=== PATIENT | female | born 1965 | race Caucasian/White ===

== ENCOUNTER 2018-09-08 09:30 | Observation (INO) | payer OTHER ==
--- NOTE | 2018-09-15 22:42 | GHP ---
DATE OF ADMISSION: 09/16/2018 REASON FOR ADMISSION: Patellofemoral arthritis right knee. PLANNED PROCEDURE: Right patellofemoral arthroplasty with Phan robot assist. HISTORY OF PRESENT ILLNESS: The patient is a 53-year-old female with bilateral worsening anterior kn ee pain that has failed conservative management, including braces, activity modification, injections, oral anti-inflammatory medicines. Decision made to proceed with patellofemoral arthroplasty oliver meza on the right side. PRIOR MEDICAL HISTORY: None. SURGICAL HISTORY: None. MEDICATIONS: None. ALLERGIES: No known drug allergies. SOCIAL HISTORY: Does not smoke. Occasional alcohol. She works for [employer] and [employer]. REVIEW OF SYSTEMS: No shortness of breath. No chest pain. Otherwise, review of systems is unremark able. PHYSICAL EXAM: GENERAL: Healthy 53-year-old female. She is 5 feet 3 inches tall, weighs 145 pounds . VITAL SIGNS: Blood pressure is 123/74, heart rate 68, respiratory rate 16 on room air. She is al ert and oriented x3. HEENT: Normocephalic, atraumatic. Extraocular muscles intact. NECK: Supple. There is no lymphadenopathy. No JVD. CHEST: Clear to auscultation. CARDIOVASCULAR: Regular rat e and rhythm. ABDOMEN: Soft. No tenderness. No hepatosplenomegaly. EXTREMITIES: Focusing on the right knee: Lateral tilt to the patella. There is no effusion. She has full extension, flexes to 130 degrees. Knee is stable to varus, valgus stress testing. 1+ Laith with a firm endpoint. Nega tive posterior drawer. Calf is soft. Positive patellar grind test. 2+ dorsalis pedis and posterior tibial pulses. IMAGING: X-rays, MRIs, and CT scans were all reviewed. Bone quality looks good. She has severe pat ellofemoral arthritis. The cartilage of the medial lateral compartments is well maintained. There a re no meniscal tears. Ligaments are intact. ASSESSMENT: Severe patellofemoral arthritis, right knee. PLAN: We will proceed with a Phan assisted patellofemoral arthroplasty on the right knee. The risks and benefits including postoperative stiffness, infection, blood clots, were all discussed. She und erstands these risks and wished to proceed. /[id number]/MODL
[2018-09-16] MEDS ORDERED: ceFAZolin 2 GM/DEXTROSE 100 ML IV ONE (08:10)
[2018-09-16] MEDS ORDERED: LR 1,000 ML IV ONE (08:11)
--- NOTE | 2018-09-16 09:06 | PDHPUP ---
History & Physical Update H&P update statement: This history and physical update is based on an assessment of the patient which was completed after admission or registration (within 24 hours), but prior to the surgery/procedure. H&P update: H&P reviewed & patient examined, no change in patient's condition since H&P completed
[2018-09-16] MEDS ORDERED: ONDANSETRON 4 MG/2 ML VIAL IVP PRN ×2 (09:11→11:12)
[2018-09-16] MEDS ORDERED: ACETAMINOPHEN 500 MG TAB PO PRN (09:11)
[2018-09-16] MEDS ORDERED: DEXAMETHASONE 4 MG/ML VIAL IVP PRN (09:11)
[2018-09-16] MEDS ORDERED: HYDROmorphONE/DILAUDID 2 MG/ML INJ IVP PRN (09:11)
[2018-09-16] MEDS ORDERED: NALOXONE HCL 0.4 MG/ML INJ IVP PRN (09:11)
[2018-09-16] MEDS ORDERED: oxyCODONE IR 5 MG TAB PO PRN (09:11)
[2018-09-16] MEDS ORDERED: MIDAZOLAM 2 MG/2 ML VIAL IVP ONE (09:11)
[2018-09-16] MEDS ORDERED: LR 500 ML IV PRN (09:11)
[2018-09-16] MEDS ORDERED: fentaNYL 100 MCG/2 ML INJ IVP PRN (09:11)
--- NOTE | 2018-09-16 09:12 | PDANEPAE ---
ANE History of Present Illness r kNEE ANE Past Medical History - Cardiovascular History Hx Hypertension: No Hx Arrhythmias: No Hx Chest Pain: No Hx Coronary Artery / Peripheral Vascular Disease: No Hx CHF / Valvular Disease: No Hx Palpitations: No - Pulmonary History Hx COPD: No Hx Asthma/Reactive Airway Disease: No Hx Recent Upper Respiratory Infection: No Hx Oxygen in Use at Home: No Hx Sleep Apnea: No Sleep Apnea Screening Result - Last Documented: Negative - Neurologic History Hx Cerebrovascular Accident: No Hx Seizures: No Hx Dementia: No - Endocrine History Hx Diabetes: No - Renal History Hx Renal Disorders: No - Liver History Hx Hepatic Disorders: No - Neurological & Psychiatric Hx Hx Neurological and Psychiatric Disorders: Yes Neurological / Psychiatric History Comment: anxiety - Cancer History Hx Cancer: No - Congenital Disorder History Hx Congenital Disorders: No - GI History Hx Gastrointestinal Disorders: Yes Gastrointestinal History Comment: irritable bowel - Other Health History Other Health History: wears reading glasses - Chronic Pain History Chronic Pain: Yes (knee, back) - Surgical History Prior Surgeries: cervical fusion. breast implants. tonsillectomy. hand surgery ANE Review of Systems Review of Systems: - Exercise capacity METS (RN): 5 METS ANE Patient History - Allergies Allergies/Adverse Reactions: No Known Allergies Allergy (Verified 08/05/18 11:17) - Home Medications Home Medications: Herbals/Supplements -Info Only 1 each PO DAILY 08/05/18 [Last Taken Unknown] Ibuprofen [Motrin (*)] 200 mg PO DAILY PRN 08/05/18 [Last Taken Unknown] - NPO status NPO Since - Liquids (Date): 09/15/18 NPO Since - Solids (Date): 09/15/18 - Smoking Hx Smoking Status: Never smoked - Family Anes Hx Family Hx Anesthesia Complications: none ANE Labs/Vital Signs - Vital Signs Blood Pressure: 139/79 Heart Rate: 64 Respiratory Rate: 16 O2 Sat (%): 96 Height: 160.02 cm Weight: 65.317 kg ANE Physical Exam - Airway Neck exam: FROM Mallampati Score: Class 2 Mouth exam: normal dental/mouth exam - Pulmonary Pulmonary: clear to auscultation - Cardiovascular Cardiovascular: regular rate and rhythym - ASA Status ASA Status: I ANE Anesthesia Plan Anesthesia Plan: spinal Regional Anesthesia: adductor canal FNB
[2018-09-16] MEDS ORDERED: ceFAZolin 1 GM/5 ML SYR ONE (09:13)
[2018-09-16] MEDS ORDERED: PROPOFOL/EMULSION 500 MG/50 ML BOTTLE IV ONE ×2 (09:14)
[2018-09-16] MEDS ORDERED: BUPIVACAINE/DEXTROSE 7.5MG/ML 2 ML SPINAL AMP SP ONE (09:18)
[2018-09-16] MEDS ORDERED: fentaNYL 100 MCG/2 ML INJ ONE (10:00)
[2018-09-16] MEDS ORDERED: ROPIVACAINE HCL 150 MG/30 ML INJ ONE (10:01)
[2018-09-16] MEDS ORDERED: BUPIVACAINE/EPI 0.5% 30 ML SDV ONE (10:05)
[2018-09-16] MEDS ORDERED: THROMBIN (BOVINE) 5,000 UNIT VIAL TP ONE (10:24)
[2018-09-16] MEDS ORDERED: CALCIUM CHLORIDE 1 GM/10 ML INJ ONE (10:24)
[2018-09-16] MEDS ORDERED: ONDANSETRON DISINTEGRATING 4 MG TAB PO PRN (11:12)
--- NOTE | 2018-09-16 11:16 | POSTOPPROG ---
Post Op Note Date of Operation: 09/16/18 Surgeon: Chava Ashley Crystal Calibrator: Saturnino Bardales Anesthesiologist: Norman Anesthesia: GET(General Endotracheal) Pre-op Diagnosis: Right knee patellofemoral osteoarthritis Post-op Diagnosis: Right knee patellofemoral osteoarthritis Procedure: Right knee patellofemoral arthroplasty Inf/Abcess present in the surg proc area at time of surgery?: No Depth: Deep Incisional (Fascial) EBL: Minimal
[2018-09-16] MEDS ORDERED: MAGNESIUM HYDROXIDE 30 ML UDCUP PO PRN (11:26)
[2018-09-16] MEDS ORDERED: CYCLOBENZAPRINE 10 MG TAB PO PRN (11:26)
[2018-09-16] MEDS ORDERED: POLYETHYLENE GLYCOL 3350 17 GM PKT PO PRN (11:26)
[2018-09-16] MEDS ORDERED: diphenhydrAMINE 25 MG CAP PO PRN (11:26)
[2018-09-16] MEDS ORDERED: DIPHENOXYLATE/ATROPINE LOMOTIL 1 TAB PO PRN (11:26)
[2018-09-16] MEDS ORDERED: PROMETHAZINE HCL 25 MG/ML INJ IVP PRN (11:26)
[2018-09-16] MEDS ORDERED: LACTULOSE 20 GM/30 ML UDCUP PO PRN (11:26)
[2018-09-16] MEDS ORDERED: BISACODYL 10 MG SUPP PR PRN (11:26)
--- NOTE | 2018-09-16 11:26 | POSTANESTH ---
Post Anesthetic Evaluation Cardiovascular Status: Normal, Stable Respiratory Status: Normal, Stable Level of Consciousness/Mental Status: Mildly Sleepy, Arousable Pain Control: Adequate, Prn Tx Ordered Nausea/Vomiting Control: Adequate, Prn Tx Ordered Complications Possibly Related to Anesthesia: None Noted
[2018-09-16] MEDS ORDERED: LR 1,000 ML IV SCH (11:30)
--- NOTE | 2018-09-16 12:30 | GOP ---
DATE OF OPERATION: 09/16/2018 SURGEON: Chava Ashley MD FRESH FOOD MANAGER: Saturnino Luciano, FURNACE CHECKER, [facility]. PREOPERATIVE DIAGNOSIS: Patellofemoral arthritis, right knee. POSTOPERATIVE DIAGNOSIS: Patellofemoral arthritis, right knee. PROCEDURE PERFORMED: Right patellofemoral arthroplasty with Phan assist. FINDINGS: DESCRIPTION OF PROCEDURE: After appropriate informed consent was obtained, the patient was taken to the operating room and placed supine on the operating table. Time-out was performed. Patient was id entified and correct site was identified. She received 2 g of Ancef preoperatively. Following a spi nal anesthetic, the patient was positioned on the OR table. Right lower extremity was prepped and dr aped in the usual sterile fashion. Right leg was placed in a Means leg freeman. We made a standard midline incision with a medial parapatellar arthrotomy. Approximately 4 cm above that, we placed 2 pins to attach our array for the Phan. We also placed our secondary pin on the med ial femoral condyle. The patella was everted. She had full-thickness cartilage loss throughout the patellofemoral compartment. The meniscus and the articular cartilage in medial, lateral joint lines were in good shape. We then registered the knee within the robotic arm, flexed the knee up. We brought the Phan robot in and we were able to resect the femur without difficulty. Then using an oscillating saw, we resected 8 mm of patella, which left us about 14 mm thickness. This sized to a size 32. We drilled our lug holes. Irrigated the wound. We mixed cement on the back table and cemented the femoral component, f ollowed by the patellar component. There was a good transition zone going from flexion to extension. There was still a little bit of a lateral tilt to the patella, so using the electrocautery device, I performed a lateral release which gave us a little better tracking. Wound was irrigated a final time. The extensor mechanism was closed with 0 Vicryl. I instilled 10 m L of PRP beneath the extensor tendon repair and 20 mL of 0.5% Marcaine with epinephrine. Superficial layer was closed with 2-0 Vicryl. The skin was closed with a 3-0 Quill stitch in a subcuticular fas hion. Steri-Strips were applied to the skin. Sterile dressing was applied. Patient was awakened fr om anesthesia, taken to the recovery room in satisfactory condition. There were no immediate intraop erative complications. Saturnino Luciano's assistance was required throughout the entire case. IMPLANTS USED: [place] size 3 right femoral component and a 32 mm asymmetric patella, cemented. TOTAL TOURNIQUET TIME: 55 minutes at 250 mmHg. COMPLICATIONS: None. DRAINS: None. HISTORY: The patient is a 53-year-old female with longstanding bilateral knee pain. X-rays, MRIs, a nd CTs were obtained, which showed severe patellofemoral compartment arthritis. Remainder of the kne e was in good shape. Decision was made to proceed with patellofemoral arthroplasty. /[id number]/MODL
[2018-09-16] MEDS: ACETAMINOPHEN 325 MG TAB PO SCH ×2 (12:51→18:57)
[2018-09-16] MEDS: OXYCODONE/APAP 5/325 TAB PO PRN ×2 (12:51→15:09)
[2018-09-16] MEDS: oxyCODONE IR 5 MG TAB PO PRN ×2 (18:58→22:09)
[2018-09-16] MEDS: ASPIRIN 325 MG TAB PO SCH (21:49)
[2018-09-16] MEDS: FAMOTIDINE 20 MG TAB PO SCH (21:50)
[2018-09-16] MEDS: SENNOSIDES/DOCUSATE SODIUM TAB PO SCH (21:50)
[2018-09-17] MEDS: ACETAMINOPHEN 325 MG TAB PO SCH ×4 (00:09→12:16)
[2018-09-17] MEDS: oxyCODONE IR 5 MG TAB PO PRN ×4 (01:02→12:17)
[2018-09-17 07:30] VITALS: BP 121/63
[2018-09-17] MEDS: FAMOTIDINE 20 MG TAB PO SCH (08:40)
[2018-09-17] MEDS: SENNOSIDES/DOCUSATE SODIUM TAB PO SCH (08:40)
[2018-09-17] MEDS: ASPIRIN 325 MG TAB PO SCH (08:40)
--- NOTE | 2018-09-17 11:06 | SOAPPROG ---
SOAP Progress Note Assessment/Plan: Assessment: Plan: 09/17/18 11:04 POD#1 PF arthroplasty DC home may remove dressing Saturday Showers now OK in occlusive dressing ASA 325 mg daily x 14 days F/U [place] 2 weeks Subjective: feeling better able to urinate had some dizziness when using comode o/n non today pain controlled Objective: DRessing c/d/i ankle df/pf 5/5 2+ dp/tp pulses calf soft Vital Signs Temp Pulse Resp BP Pulse Ox 36.6 C 58 L 14 121/63 H 97 09/17/18 07:29 09/17/18 07:29 09/17/18 07:29 09/17/18 07:29 09/17/18 07:29 09/16/18 09/17/18 09/18/18 05:59 05:59 05:59 Intake Total 1425 600 Output Total 1000 Balance 425 600 ICD10 Worksheet Patient Problems: Problems Problem Status Onset Osteoarthritis of right knee Acute - ICD10 Problem Qualifiers (1) Osteoarthritis of right knee
--- NOTE | 2018-09-17 12:25 | ASMTCMCOM ---
CM Note CM Note Notes: Pt had planned R TKA. OT rec home, PT rec home/outpatient. Anticipate pt will d/c when medically stable. No CM d/c needs identified. CM available for changes/needs. Date Signed: 09/17/2018 12:24 PM Electronically Signed By:DAMIÁN Lopez
--- NOTE | 2018-09-17 12:26 | ASMTLACE ---
JOHNNYE Length of stay for Answers: 2 days current admission Acuity / Level of Answers: No Care: Did the patient have an inpatient admission? Comorbidities - select Answers: Opioid dependence all that apply / Chronic pain # of Emergency department Answers: 0 visits in the last 6 months Social determinants Answers: Mental health diagnosis (anxiety, depression, pers onality disorders, etc.) Score: 9 Date Signed: 09/17/2018 12:25 PM Electronically Signed By:DAMIÁN Lopez
== END 2018-09-17 12:49 | disposition home or self-care (01) ==
LOC: F3N 09-16 07:39
PROVIDERS: ADMIT Orthopaedic Surgery; ATTEND Orthopaedic Surgery
DX: M17.11 Unilateral primary osteoarthritis, right knee (principal); Z98.1 Arthrodesis status
CPT/HCPCS: 27438; 73560; 97116; 97161; 97165; G0378; C1713; J0690; J2250; J2270; J2405; J2704; J2795; J3010

== ENCOUNTER → 2018-09-09 | Outpatient (CLI) | payer OTHER | LOC: FIMAGING 15:43 | PROVIDERS: ATTEND Orthopaedic Surgery | DX: Z01.818 Encounter for other preprocedural examination (principal); M23.91 Unspecified internal derangement of right knee; M23.92 Unspecified internal derangement of left knee ==

== ENCOUNTER 2018-10-27 07:55 | Observation (INO) | payer OTHER ==
--- NOTE | 2018-10-26 20:24 | PDGENHP ---
History & Physical Chief Complaint: Left knee patellofemoral joint osteoarthritis History of Present Illness: Angela is a pleasant 53 year old female with left knee patellofemoral joint osteoarthritis. She would like to proceed with surgical intervention including patellofemoral joint arthroplasty. Pertinent Past, Social, Family History: PMH:none. SH: non-contributory. FH: non-contributory Relevant Physical Exam: Upon evaluation of her left knee skin is clean and dry. TTP overlying the medial and lateral patellar facet. + patellar grind + patellar compression ROM from 0-150. Stable to ligamentous exam. Cardiorespiratory Assessment: RRR, CTAB
--- NOTE | 2018-10-26 20:27 | GHP ---
DATE OF ADMISSION: 10/27/2018 PREOPERATIVE DIAGNOSIS: Left patellofemoral knee osteoarthritis. PLANNED PROCEDURE: Left patellofemoral arthroplasty with Phan assist. HISTORY: The patient is a 53-year-old female, who is now a little over 6 weeks out from right patell ofemoral arthroplasty, who is ready to proceed with left patellofemoral arthroplasty. She has severe patellofemoral arthritis. PRIOR MEDICAL HISTORY: None. SURGICAL HISTORY: Patellofemoral arthroplasty in 2018 on the right. MEDICATIONS: None. ALLERGIES: No known drug allergies. SOCIAL HISTORY: Occasional alcohol use. Does not smoke. [place]. REVIEW OF SYSTEMS: No shortness of breath or chest pain. Otherwise, review of systems is unremarkab le. PHYSICAL EXAM: Healthy-appearing 53-year-old female. VITAL SIGNS: She is 5 feet 3 inches tall, mary ghs 145 pounds. Blood pressure is 123/74, heart rate 68, respiratory rate is 14 on room air. GENERA L: Alert and oriented x3. HEENT: Normocephalic, atraumatic. Extraocular muscles are intact. NECK : Supple. There is no lymphadenopathy. No JVD. CHEST: Clear to auscultation. CARDIOVASCULAR: R egular rate and rhythm. ABDOMEN: Soft, nontender, nondistended. EXTREMITIES: Focusing on the left knee shows no effusion. Slight lateral tracking to her patella. There is quite a bit of patellofem oral crepitus with flexion and extension. She has full extension of the knee. Flexes to 135 degrees . Knee is stable to varus and valgus stress testing. 1+ Laith with a firm endpoint. Negative pos terior drawer. Calf is soft. 2+ dorsalis pedis, posterior tibial pulses. IMAGING: Plain film, CT scans, MRIs are reviewed. Severe patellofemoral arthritis. ASSESSMENT: Severe patellofemoral arthritis. PLAN: We will proceed with a patellofemoral arthroplasty on the left with Phan assist. The risks an d benefits including continued pain, possible need for revision surgery to a total knee arthroplasty in the future, blood clots and infection were all discussed. She understands these risks, wishes to proceed. Her preoperative paperwork was completed. We will plan on surgery October 27 at [facility]. /[id number]/MODL
[2018-10-27] MEDS ORDERED: LR 1,000 ML IV ONE (08:08)
[2018-10-27] MEDS ORDERED: ceFAZolin 2 GM/DEXTROSE 100 ML IV ONE (08:08)
[2018-10-27] MEDS ORDERED: MIDAZOLAM 2 MG/2 ML VIAL IVP ONE (08:40)
--- NOTE | 2018-10-27 08:40 | PDANEPAE ---
ANE History of Present Illness left knee pain ANE Past Medical History - Cardiovascular History Hx Hypertension: No Hx Arrhythmias: No Hx Chest Pain: No Hx Coronary Artery / Peripheral Vascular Disease: No Hx CHF / Valvular Disease: No Hx Palpitations: No - Pulmonary History Hx COPD: No Hx Asthma/Reactive Airway Disease: No Hx Recent Upper Respiratory Infection: No Hx Oxygen in Use at Home: No Hx Sleep Apnea: No Sleep Apnea Screening Result - Last Documented: Negative - Neurologic History Hx Cerebrovascular Accident: No Hx Seizures: No Hx Dementia: No - Endocrine History Hx Diabetes: No Hypothyroid: No Hyperthyroid: No Obesity: no - Renal History Hx Renal Disorders: No - Liver History Hx Hepatic Disorders: No - Neurological & Psychiatric Hx Hx Neurological and Psychiatric Disorders: Yes Neurological / Psychiatric History Comment: anxiety - Cancer History Hx Cancer: No - Congenital Disorder History Hx Congenital Disorders: No - GI History GERD: no Hx Gastrointestinal Disorders: Yes Gastrointestinal History Comment: irritable bowel - Other Health History Other Health History: wears reading glasses - Chronic Pain History Chronic Pain: Yes (knee, back) - Surgical History Prior Surgeries: RT KNEE MAKOPLASTY 09/16/18. cervical fusion. breast implants. tonsillectomy. hand surgery ANE Review of Systems Review of systems is: negative Review of Systems: - Exercise capacity Exercise capacity: >=4 METS METS (RN): 4 METS ANE Patient History - Allergies Allergies/Adverse Reactions: No Known Allergies Allergy (Verified 08/05/18 11:17) - Home Medications Home medications: home medication list seen and reviewed Home Medications: Herbals/Supplements -Info Only 1 each PO DAILY 08/05/18 [Last Taken 1 Week Ago ~ 10/20/18] Ibuprofen [Motrin (*)] 200 mg PO DAILY PRN 08/05/18 [Last Taken 1 Week Ago ~02/02] - NPO status NPO Status: no food or drink >8 hours - Anes Hx Anes Hx: no prior problems - Smoking Hx Smoking Status: Never smoked - Family Anes Hx Family Anes Hx: none Family Hx Anesthesia Complications: none ANE Labs/Vital Signs - Labs Result Diagrams: 10/27/18 08:45 - Vital Signs Height: 152.4 cm Weight: 63.503 kg ANE Physical Exam - Airway Neck exam: FROM Mallampati Score: Class 1 Mouth exam: normal dental/mouth exam - Pulmonary Pulmonary: no respiratory distress - Cardiovascular Cardiovascular: regular rate and rhythym - ASA Status ASA Status: I ANE Anesthesia Plan Anesthesia Plan: spinal Regional Anesthesia: single shot NB, adductor canal FNB
[2018-10-27] MEDS ORDERED: ceFAZolin 1 GM/5 ML SYR ONE (08:44)
[2018-10-27] MEDS ORDERED: PROPOFOL/EMULSION 500 MG/50 ML BOTTLE IV ONE (08:53)
[2018-10-27] MEDS ORDERED: fentaNYL 100 MCG/2 ML INJ ONE (08:53)
[2018-10-27] MEDS ORDERED: BUPIVACAINE/DEXTROSE 7.5MG/ML 2 ML SPINAL AMP SP ONE (09:01)
[2018-10-27 09:04] LABS: PLATELET COUNT 279 10^3/uL (150-400)
[2018-10-27] MEDS ORDERED: BUPIVACAINE/EPI 0.5% 30 ML SDV ONE (09:12)
[2018-10-27] MEDS ORDERED: LIDOCAINE 2% 5 ML SDV ONE (09:23)
[2018-10-27] MEDS ORDERED: THROMBIN (BOVINE) 5,000 UNIT VIAL TP ONE (09:29)
[2018-10-27] MEDS ORDERED: CALCIUM CHLORIDE 1 GM/10 ML INJ ONE (09:29)
[2018-10-27] MEDS ORDERED: ONDANSETRON 4 MG/2 ML VIAL ONE (09:42)
[2018-10-27] MEDS ORDERED: ePHEDrine SULFATE 25 MG/5 ML SYR ONE (09:42)
[2018-10-27] MEDS ORDERED: DEXAMETHASONE 4 MG/ML VIAL ONE ×2 (09:42)
[2018-10-27] MEDS ORDERED: PHENYLEPHRINE HCL 100 MCG/ML SYR ONE (09:47)
[2018-10-27] MEDS ORDERED: HYDROmorphONE/DILAUDID 2 MG/ML INJ IVP PRN (09:58)
[2018-10-27] MEDS ORDERED: ALBUTEROL 3 ML DEYVIAL IH PRN (09:58)
[2018-10-27] MEDS ORDERED: NALOXONE HCL 0.4 MG/ML INJ IVP PRN (09:58)
[2018-10-27] MEDS ORDERED: MEPERIDINE 25 MG/0.5 ML AMP IVP PRN (09:58)
[2018-10-27] MEDS ORDERED: METOCLOPRAMIDE 10 MG/2 ML VIAL IVP PRN ×2 (09:58→10:48)
[2018-10-27] MEDS ORDERED: PROMETHAZINE HCL 25 MG/ML INJ IVP PRN ×2 (09:58→10:48)
[2018-10-27] MEDS ORDERED: oxyCODONE IR 5 MG TAB PO PRN (09:58)
[2018-10-27] MEDS ORDERED: PHENYLEPHRINE HCL 100 MCG/ML SYR IVP PRN (09:58)
[2018-10-27] MEDS ORDERED: LR 500 ML IV PRN (09:58)
[2018-10-27] MEDS ORDERED: LABETALOL HCL 20 MG/4 ML INJ IVP PRN (09:58)
[2018-10-27] MEDS ORDERED: DIAZEPAM 5 MG/ML 1 ML SYR IVP PRN (09:58)
[2018-10-27] MEDS ORDERED: ACETAMINOPHEN 500 MG TAB PO PRN (09:58)
[2018-10-27] MEDS ORDERED: fentaNYL 100 MCG/2 ML INJ IVP PRN (09:58)
[2018-10-27] MEDS ORDERED: PROPOFOL 200 MG/20 ML VIAL ONE (10:13)
[2018-10-27] MEDS ORDERED: ONDANSETRON 4 MG/2 ML VIAL IVP PRN (10:48)
[2018-10-27] MEDS ORDERED: diphenhydrAMINE 25 MG CAP PO PRN (10:48)
[2018-10-27] MEDS ORDERED: CYCLOBENZAPRINE 10 MG TAB PO PRN (10:48)
[2018-10-27] MEDS ORDERED: DIPHENOXYLATE/ATROPINE LOMOTIL 1 TAB PO PRN (10:48)
[2018-10-27] MEDS ORDERED: POLYETHYLENE GLYCOL 3350 17 GM PKT PO PRN (10:48)
[2018-10-27] MEDS ORDERED: ONDANSETRON DISINTEGRATING 4 MG TAB PO PRN (10:48)
[2018-10-27] MEDS ORDERED: TEMAZEPAM 15 MG CAP PO PRN (10:48)
[2018-10-27] MEDS ORDERED: traMADol 50 MG TAB PO PRN (10:48)
[2018-10-27] MEDS ORDERED: LACTULOSE 20 GM/30 ML UDCUP PO PRN (10:48)
[2018-10-27] MEDS ORDERED: PROMETHAZINE HCL 25 MG SUPPR PR PRN (10:48)
[2018-10-27] MEDS ORDERED: MAGNESIUM HYDROXIDE 30 ML UDCUP PO PRN (10:48)
[2018-10-27] MEDS ORDERED: BISACODYL 10 MG SUPP PR PRN (10:48)
--- NOTE | 2018-10-27 10:54 | POSTOPPROG ---
Post Op Note Date of Operation: 10/27/18 Surgeon: Chava Ashley Computer Forensics Examiner: Saturnino Luciano Anesthesiologist: constanza Anesthesia: Spinal Pre-op Diagnosis: PF OA left Post-op Diagnosis: same Procedure: Left PF partial TKA Findings: severe PF arthritis Inf/Abcess present in the surg proc area at time of surgery?: No EBL: 50-100 Complications: none
[2018-10-27] MEDS ORDERED: LR 1,000 ML IV SCH (11:00)
[2018-10-27] MEDS ORDERED: ROPIVACAINE HCL 150 MG/30 ML INJ ONE (12:10)
[2018-10-27] MEDS: ACETAMINOPHEN 325 MG TAB PO SCH ×3 (12:31→23:43)
[2018-10-27] MEDS: KETOROLAC 15 MG/1 ML SDV IVP SCH ×3 (12:31→23:42)
--- NOTE | 2018-10-27 12:35 | POSTANESTH ---
Post Anesthetic Evaluation Cardiovascular Status: Normal, Stable Respiratory Status: Normal, Stable Level of Consciousness/Mental Status: Can Participate in Eval Pain Control: Adequate, Prn Tx Ordered Nausea/Vomiting Control: Adequate, Prn Tx Ordered Complications Possibly Related to Anesthesia: None Noted
--- NOTE | 2018-10-27 13:31 | GOP ---
DATE OF OPERATION: 10/27/2018 SURGEON: Chava Ashley MD BELT PRESS OPERATOR: Darien Luciano, LEAD CARGO MOVER, [facility]. ANESTHESIA: Spinal with an adductor canal block. ANESTHESIOLOGIST: Dr. Acevedo PREOPERATIVE DIAGNOSIS: Osteoarthritis patellofemoral compartment left knee. POSTOPERATIVE DIAGNOSIS: Osteoarthritis patellofemoral compartment left knee. PROCEDURE PERFORMED: Patellofemoral arthroplasty with IRVIN assist. FINDINGS: DESCRIPTION OF PROCEDURE: After appropriate informed consent was obtained, patient was taken to the operating room and laid supine on the operating table. Time-out was performed. Patient was identifi ed. Correct site was identified. She received 2 g Ancef preoperatively. Following a spinal anesthe tic, left lower extremity was prepped and draped in usual sterile fashion. Limb was exsanguinated. Tourniquet was inflated to 250 mmHg. Total tourniquet time 63 minutes. I made a standard midline incision with a medial parapatellar arthrotomy. The patella was everted. The knee was flexed up slightly. We placed our 2 array pins in the distal femoral and our secondary check in the medial femoral condyle. We then brought in the IRVIN and coordinated the position of the knee. We then were able to bring in the robotic arm and created our femoral cut out. We trialed a size 3, which gave us good coverage of the trochlear groove. It sat nice and flush with the surround ing cartilage. We then turned our attention to the patella. This measured 22 mm thick. I resected about 9 mm off the patella, leaving 13 mm of thickness. This sized to a size 32. We drilled our lug holes. Pulsatile lavage was used to irrigate both the femur and the patella. We then mixed cement on the back table. The femoral component was cemented, excess cement was removed as was the patellar component. Once the cement had cured, we irrigated the wound a final time. 12 mL of PRP was placed over the cut bone surfaces and the extensor tendon. We placed 10 mL of 0.5% Marcaine with epinephri ne in the knee. The extensor mechanism was closed with 0 Vicryl, superficial layers closed with 2-0 Vicryl and the sk in was closed with a subcuticular 3-0 Quill stitch. All the arrays had been removed prior to closure . Steri-Strips were applied to the skin. Sterile dressing was applied. Patient was awakened from a nesthesia, taken to the recovery in satisfactory condition. There were no immediate intraoperative c omplications. Bill Pressor's assistance was required throughout the entire case. IMPLANTS USED: A size 3 femoral component, and a 32 asymmetrical patellar component, both cemented. TOTAL TOURNIQUET TIME: 63 minutes at 250 mmHg. COMPLICATIONS: None. DRAINS: None. HISTORY: Angela is a 53-year-old female with long-standing worsening bilateral patellofemoral pain t hat has failed conservative management. She has undergone a right patellofemoral arthroplasty and do ne well with that. She is now ready to return for left patellofemoral arthroplasty. /[id number]/MODL
[2018-10-27] MEDS: ceFAZolin 2 GM/DEXTROSE 100 ML IV SCH (17:47)
[2018-10-27] MEDS: SENNOSIDES/DOCUSATE SODIUM TAB PO SCH (21:28)
[2018-10-27] MEDS: FAMOTIDINE 20 MG TAB PO SCH (21:28)
[2018-10-28] MEDS: ceFAZolin 2 GM/DEXTROSE 100 ML IV SCH (00:55)
[2018-10-28] MEDS: KETOROLAC 15 MG/1 ML SDV IVP SCH (06:00)
[2018-10-28] MEDS: ACETAMINOPHEN 325 MG TAB PO SCH ×2 (06:00→11:29)
[2018-10-28] MEDS: SENNOSIDES/DOCUSATE SODIUM TAB PO SCH (08:42)
[2018-10-28] MEDS: FAMOTIDINE 20 MG TAB PO SCH (08:42)
[2018-10-28] MEDS ORDERED: ASPIRIN 325 MG TAB PO SCH (09:00)
[2018-10-28 11:50] VITALS: BP 155/89
--- NOTE | 2018-10-28 12:21 | SOAPPROG ---
SOAP Progress Note Assessment/Plan: Assessment: Angela is POD#1 s/p Left patellofemoral joint arthroplasty and is doing well. PE: Incision is clean and dry. Mild effusion. SLR intact. calf soft to compression without pain Plan: Plan for discharge today. Dressing changed to waterproof dressing. Aspirin x 14 days post op. Scripts for pain medication given to patient. Celebrex script in chart. 10/28/18 12:19 Objective: Vital Signs Temp Pulse Resp BP Pulse Ox 36.8 C 79 14 155/89 H 98 10/28/18 11:50 10/28/18 11:50 10/28/18 11:50 10/28/18 11:50 10/28/18 11:50 Laboratory Results 10/28/18 04:26 10/27/18 10/28/18 10/29/18 05:59 05:59 05:59 Intake Total 1000 Output Total 1150 Balance -150 ICD10 Worksheet Patient Problems: Problems Problem Status Onset Osteoarthritis of right knee Acute
[2018-10-28] MEDS ORDERED: oxyCODONE IR 5 MG TAB PO PRN (12:22)
--- NOTE | 2018-10-28 21:30 | ASMTCMCOM ---
CM Note CM Note Notes: Pt had planned knee resurfacing. PT rec home/outpatient. Pt medically stable for d/c, no CM d/c needs identified. Date Signed: 10/28/2018 12:43 PM Electronically Signed By:DAMIÁN Lopez
--- NOTE | 2018-10-28 21:30 | ASMTLACE ---
TALIA Length of stay for Answers: 2 days current admission Acuity / Level of Answers: No Care: Did the patient have an inpatient admission? Comorbidities - select Answers: Opioid dependence all that apply / Chronic pain # of Emergency department Answers: 0 visits in the last 6 months Social determinants Answers: Mental health diagnosis (anxiety, depression, pers onality disorders, etc.) Score: 9 Date Signed: 10/28/2018 12:41 PM Electronically Signed By:DAMIÁN Lopez
== END 2018-10-28 13:49 | disposition home or self-care (01) ==
LOC: F3N 07:55 → PREINTOOBSV 16:17
PROVIDERS: ADMIT Orthopaedic Surgery; ATTEND Orthopaedic Surgery
PROC: 0QRF0JZ Replacement of Left Patella with Synthetic Substitute, Open Approach (ICD-10-PCS; principal; 2018-10-27 09:00)
PROC: 8E0YXCZ Robotic Assisted Procedure of Lower Extremity (ICD-10-PCS; principal; 2018-10-27 09:00)
DX: M17.12 Unilateral primary osteoarthritis, left knee (principal); Z98.1 Arthrodesis status
CPT/HCPCS: 27438; 73560; 97116; 97161; 97165; G0378; C1713; J0690; J1100; J1885; J2250; J2370; J2405; J2704; J2795; J3010